=== PATIENT | male | born 1985 | race Caucasian/White ===

== ENCOUNTER 2018-03-25 19:22 | Emergency (ER) | payer SELFPAY ==
[2018-03-25 22:02] LABS: URINE BLOOD (Dip) POC Negative (NEGATIVE); URINE GLUCOSE (Dip) POC Negative (NEGATIVE); URINE KETONES (Dip) POC Negative (NEGATIVE); URINE LEUKOCYTE EST (Dip) POC 2+ (NEGATIVE); URINE NITRITE (Dip) POC Negative (NEGATIVE); URINE TOTAL PROTEIN POC Trace (NEGATIVE)
[2018-03-25] MEDS: AZITHROMYCIN 250 MG TAB PO (22:13)
[2018-03-25] MEDS: CEFTRIAXONE 250 MG INJ IM (22:17)
== END 2018-03-26 01:04 | disposition left against medical advice (07) ==
LOC: FTE 03-26 01:04
DX: R36.9 Urethral discharge, unspecified (principal)
CPT/HCPCS: 81003; 87591; 96372; 99284-25